=== PATIENT | male | born 1955 | race Caucasian/White ===

== ENCOUNTER 2018-08-18 17:35 | Inpatient (IN) | payer SELFPAY ==
[~2018-08-18] VITALS: Ht 172.7 cm; Wt 89.0 kg
[~2018-08-18 17:35] MED LIST: CYCL10 PO; NAPR550 PO; Percocet 5-3251 EACH PO
[2018-08-18 18:09] LABS: BASOPHILS ABSOLUTE AUTO 0.06 K/mm3 (0.00-0.23); BASOPHILS PERCENT AUTO 1 % (0-2); EOSINOPHILS ABSOLUTE AUTO 0.36 K/mm3 (0.00-0.68); EOSINOPHILS PERCENT AUTO 4 % (0-6); Hematocrit 45.5 % (37.0-53.0); Hemoglobin 15.3 g/dL (13.5-17.5); IMMATURE GRAN ABSOLUTE AUTO 0.02 K/mm3 (0.00-0.10); IMMATURE GRAN PERCENT AUTO 0 % (0-1); LYMPHOCYTES ABSOLUTE AUTO 5.14 K/mm3 (0.84-5.20); LYMPHOCYTES PERCENT AUTO 51 % (21-46); MONOCYTES ABSOLUTE AUTO 0.52 K/mm3 (0.16-1.47); MONOCYTES PERCENT AUTO 5 % (4-13); Mean Corpuscular HGB 31.2 pg (26.0-34.0); Mean Corpuscular HGB Conc 33.6 g/dL (31.5-36.5); Mean Corpuscular Volume 93 fL (80-100); Mean Platelet Volume 9.5 fL (9.1-12.4); NEUTROPHILS ABSOLUTE AUTO 4.04 K/mm3 (1.96-9.15); NEUTROPHILS PERCENT AUTO 40 % (41-73); Platelet Count 302 K/mm3 (150-400); RDW Coefficient Variation 13.7 % (11.7-14.2); RDW Standard Deviation 47.1 fL (35.1-46.3); White Blood Cell Count 10.14 K/mm3 (4.00-11.30)
[2018-08-18 18:38] LABS: Alanine Aminotransfer (ALT/SGP 22 U/L (12-78); Albumin, Blood 4.2 g/dL (3.4-5.0); Albumin/Globulin Ratio 0.9 (0.8-1.8); Alk Phos 85 U/L (50-136); Anion Gap 8 mmol/L (6-16); Aspartate Aminotrans (AST/SGOT 17 U/L (12-37); Bilirubin, Total 0.5 mg/dL (0.1-1.0); Blood Urea Nitrogen 13 mg/dL (8-24); Bun/Creatinine Ratio 14.9 (12.0-20.0); CO2, Blood 26 mmol/L (21-32); Calcium, Blood 8.9 mg/dL (8.5-10.1); Chloride, Blood 104 mmol/L (98-108); Creatinine, Blood 0.87 mg/dL (0.60-1.20); Globulin, Blood 4.9 g/dL (2.2-4.0); Glomerular Filtration Rate >60 (60-); Glucose, Blood 95 mg/dL (70-99); Potassium, Blood 3.4 mmol/L (3.5-5.5); Sodium, Blood 138 mmol/L (136-145); Total Protein, Blood 9.1 g/dL (6.4-8.2); Troponin I 0.075 ng/mL (0.000-0.040)
[2018-08-18 20:30] LABS: International Normalized Ratio 1.03; Prothrombin Time Results 10.9 Sec (9.7-11.5)
[2018-08-19 01:17] LABS: CHOL/HDL RATIO 4.1; Cholesterol 153 mg/dL (50-200); HDL Cholesterol 37 mg/dL (>39); LDL/HDL RATIO 2.4; Low Density Lipoprotein Chol 89 mg/dL (0-110); Triglycerides 137 mg/dL (30-160); Very Low Density Lipoprot Chol 27 mg/dL (6-32)
--- NOTE | 2018-08-19 05:36 | NUR ---
SHIFT SUMMARY PT ALERT AND ORIENTED X 3 THROUGHOUT SHIFT. HE WAS PLESANT AND COOPERATIVE WITH VITALS AND ASSESSMENTS. PT DENIED ANY UNMET NEEDS. HE COMMUNICATES WITH STAFF EFFECTIVELY. HE HAS HIS AT THE BEDSIDE AND SHE HAS BEEN ABLE TO ASSIST STAFF WITH QUESTIONS AND CONCERNS. PT HAS HAD COMPLAINTS OF CHEST PAIN AND PRESSURE WITH RADIATION DOWN HIS LEFT ARM T/O THE NIGHT. DOCTORS ARE AWARE AND CARDIOLOGY CONSULT HAS BEEN CALLED. PT STATES PAIN HAS BEEN JUST ABOVE TOLERABLE AND ORDERED MEDS WERE ADMINISTERED. NO ACUTE CHANGES HAVE BEEN OBSERVED TO MENTATION OR LOC. PT HAS HAD NO CHANGES TO HIS TELEMETRY PER RN ENDOCRINOLOGY. PT CONTINUES TO REST. HE HAS BEEN NPO SINCE MIDNIGHT IN THE EVENT OF THE NEED FOR PROCEDURE TODAY. HE HAS BEEN INDEPENDENT IN THE ROOM AND WAS OBSERVED TO HAVE A STEADY AND WELL BALANCED GAIT. HE HAS HIS BED IN THE LOWEST POSITION, CALL LIGHT IN REACH AND 2X SIDE RAILS IN PLACE. PT HAS JEANS ON AND DID NOT WANT TO TAKE THEM OFF AT THIS TIME. HIS VITALS HAVE BEEN STABLE T/O THE NIGHT AND HE WILL CONTINUE TO BE MONITORED UNTIL HANDOFF TO DAYSHIFT RN.
--- NOTE | 2018-08-19 08:38 | NUR ---
Shift Assessment: Assumed care of pt at approx 0700. VSS. In no apparent sign of distress. C/o 07/08 CP that has been constant for the past 2 days. See shift assessment for detailed assessment. Dr. Denton at bedside this AM to explain planned angio procedure today and obtain consent. Pt has been NPO since midnight. Pt is A&Ox4. Calls for assistance appropriately. Repositions self in bed. Verified heparin gtt with antoine RN at bedside this AM and it is running per orders. Pt is currently resting in bed with call light within reach. Denies any further questions, complaints or requests at this time. Will continue to monitor. ECHO completed this AM as well.
--- NOTE | 2018-08-19 09:17 | NUR ---
Update: Pt transferred now to HC via bed with HC staff for angio. In no apparent sign of distress at time of transfer.
--- NOTE | 2018-08-19 09:45 | NUR ---
ECHOCARDIOGRAM COMPLETE
--- NOTE | 2018-08-19 11:21 | NUR ---
Update: Pt returned to room from at approx 1030. VSS. In no apparent sign of distress. Pt is A&Ox4. Reports that he just feels tired. Denies any pain. R radial access site is wnl w/TR band in place and pt is compliant with R wrist restrictions. R radial site is free from s/sx of bleed or hematoma at this time. Pt is currently resting in bed with call light within reach. Denies any further questions, complaints or requests at this time. Will continue to monitor.
--- NOTE | 2018-08-19 12:33 | NUR ---
Spiritual care visit conducted. Patient was lying in bed when I entered the patient's room. I introduced myself and patient welcomed me. Patient explained about his very recent surgery and his hopes for a speedy recovery. I listened empathically, encouraged self care, explored patient's belief system and provided prayer. Patient responded well and expressed gratitude for the prayer.
[2018-08-19] MEDS ORDERED: ASPI81CH PO (13:10)
[2018-08-19] MEDS ORDERED: ATOR80 PO (13:11)
[2018-08-19] MEDS ORDERED: METO25ER PO (13:12)
--- NOTE | 2018-08-19 13:22 | NUR ---
2cc's of air removed from TR band. No bleeding, no hematoma, no pain.
--- NOTE | 2018-08-19 15:23 | NUR ---
Shift Summary Pt discharged at approx 1437. VSS at time of discharge. In no apparent sign of distress. Pt discharged home with family. R TR band deflated and removed per orders/protocol w/clear dressing placed and R wrist immobilizer. Pt compliant w/R wrist restrictions. Pt educated on R radial post-angio care. Pt discharged with all belongings in hand. Pt denied any further questions, complaints or requests at time of discharge. R radial access site was free from s/sx of bleed or hematoma.
== END 2018-08-19 14:37 | disposition home or self-care (01) | DRG 282 ==
LOC: ER 17:35 → PCU 20:36
PROVIDERS: Emergency Medicine; Nurse Practitioner Acute Care; Physician Assistant; ADMIT Internal Medicine
PROC: 4A023N7 Measurement of Cardiac Sampling and Pressure, Left Heart, Percutaneous Approach (ICD-10-PCS; principal; 2018-08-19)
PROC: B210YZZ Fluoroscopy of Single Coronary Artery using Other Contrast (ICD-10-PCS; 2018-08-19)
DX: I21.4 Non-ST elevation (NSTEMI) myocardial infarction (principal); I10 Essential (primary) hypertension; K59.09 Other constipation; M19.90 Unspecified osteoarthritis, unspecified site; F41.9 Anxiety disorder, unspecified; Z87.891 Personal history of nicotine dependence; Z91.14 Patient's other noncompliance with medication regimen; E87.6 Hypokalemia; I25.10 Atherosclerotic heart disease of native coronary artery without angina pectoris
CPT/HCPCS: 36415; 71046; 71260; 80053; 80061; 84484; 85025; 85347; 85610; 85730; 93005; 93010; 93306; 93454; 96374-59; 99152; 99153; 99285-25; C1769; C1894; J1644; J2250; J3010; J7030; Q9967

== ENCOUNTER → 2023-04-24 | Outpatient (CLI) | payer MEDICARE ==
[~2023-04-24] MED LIST changes: +ASPI81CH PO; +ATOR80 PO; +METO25ER PO
[2023-04-24 11:34] LABS: BASOPHILS ABSOLUTE AUTO 0.05 K/mm3 (0.00-0.23); BASOPHILS PERCENT AUTO 1 % (0-2); EOSINOPHILS ABSOLUTE AUTO 0.45 K/mm3 (0.00-0.68); EOSINOPHILS PERCENT AUTO 5 % (0-6); Hematocrit 44.4 % (37.0-53.0); Hemoglobin 14.8 g/dL (13.5-17.5); IMMATURE GRAN ABSOLUTE AUTO 0.02 K/mm3 (0.00-0.10); IMMATURE GRAN PERCENT AUTO 0 % (0-1); LYMPHOCYTES ABSOLUTE AUTO 3.48 K/mm3 (0.84-5.20); LYMPHOCYTES PERCENT AUTO 37 % (21-46); MONOCYTES ABSOLUTE AUTO 0.58 K/mm3 (0.16-1.47); MONOCYTES PERCENT AUTO 6 % (4-13); Mean Corpuscular HGB 30.6 pg (26.0-34.0); Mean Corpuscular HGB Conc 33.3 g/dL (31.5-36.5); Mean Corpuscular Volume 92 fL (80-100); NEUTROPHILS ABSOLUTE AUTO 4.96 K/mm3 (1.96-9.15); NEUTROPHILS PERCENT AUTO 52 % (41-73); Platelet Count 311 K/mm3 (150-400); RDW Coefficient Variation 14.7 % (11.7-14.2); Red Blood Cell Count 4.84 M/mm3 (4.30-5.90); White Blood Cell Count 9.54 K/mm3 (4.00-11.30)
[2023-04-24 12:04] LABS: Alanine Aminotransfer (ALT/SGP 40 U/L (12-78); Albumin, Blood 4.1 g/dL (3.4-5.0); Albumin/Globulin Ratio 0.8 (0.8-1.8); Alk Phos 87 U/L (50-136); Anion Gap 5 mmol/L (6-16); Aspartate Aminotrans (AST/SGOT 27 U/L (12-37); Bilirubin, Total 0.4 mg/dL (0.1-1.0); Blood Urea Nitrogen 16 mg/dL (8-24); Bun/Creatinine Ratio 17.1 (12.0-20.0); CO2, Blood 26 mmol/L (21-32); Calcium, Blood 9.2 mg/dL (8.5-10.1); Chloride, Blood 106 mmol/L (98-108); Cholesterol 187 mg/dL (50-200); Creatinine, Blood 0.94 mg/dL (0.60-1.20); Globulin, Blood 4.9 g/dL (2.2-4.0); Glomerular Filtration Rate 90 (60-); Glucose, Blood 98 mg/dL (70-99); HDL Cholesterol 47 mg/dL (>39); LDL/HDL RATIO 2.6; Low Density Lipoprotein Chol 121 mg/dL (0-110); Potassium, Blood 4.1 mmol/L (3.5-5.5); Sodium, Blood 137 mmol/L (136-145); Triglycerides 97 mg/dL (30-160); Very Low Density Lipoprot Chol 19 mg/dL (6-32)
== END | disposition home or self-care (01) ==
LOC: LAB SHORT 10:13 → LAB 10:13
PROVIDERS: Nurse Practitioner Family
DX: Z13.6 Encounter for screening for cardiovascular disorders (principal); I10 Essential (primary) hypertension
CPT/HCPCS: 80053; 80061; 85025

== ENCOUNTER 2024-11-04 11:50 | Emergency (ER) | payer OTHER ==
[~2024-11-04] VITALS: Ht 172.7 cm; Wt 88.5 kg
[2024-11-04 12:05] VITALS: BP 164/118
== END 2024-11-04 14:32 | disposition home or self-care (01) ==
LOC: ER 11:50
DX: S06.0X9A Concussion with loss of consciousness of unspecified duration, initial encounter (principal); R07.89 Other chest pain; Z79.82 Long term (current) use of aspirin; Z88.5 Allergy status to narcotic agent; Z79.899 Other long term (current) drug therapy; W31.0XXA Contact with mining and earth-drilling machinery, initial encounter
CPT/HCPCS: 70450; 71046; 99284-25

== ENCOUNTER 2025-03-21 09:38 | Day surgery (SDC) | payer OTHER ==
[~2025-03-21] VITALS: Ht 172.7 cm; Wt 89.8 kg
[~2025-03-21 09:38] MED LIST changes: +MULVITA PO
[2025-03-21 10:08] VITALS: BP 165/105
[2025-03-21 10:11] VITALS: BP 156/98
--- NOTE | 2025-03-21 10:20 | NUR ---
Ambulatory in Day Surgery WITH STEADY GAIT. History, Chart, Medications and Allergies reviewed before start of procedure. Pre-Op teaching done. Pt verbalizes understanding. Patient States Post-Procedure ride home has been arranged WITH SPOUSE. DENTURES AND GLASSES REMAIN IN PLACE IN PRE OP. SPOUSE AT BEDSIDE. CALL LIGHT IN REACH.
--- NOTE | 2025-03-21 11:17 | NUR ---
03/21/25 1117 Sarahy Davis MAC WITH PATRICIA HOOVER CRNA. SEE ANESTHESIA RECORDS.
[2025-03-21 11:32] VITALS: BP 137/92
--- NOTE | 2025-03-21 11:36 | NUR ---
Report received from Sarahy SHAY. VSS. Pt on RA. Pt A&OX4. Pt able to reposition self in bed. PT requesting PO food and fluids and tolerating them well. Pt denies pain, nausea or other complaints. Pt spouse at bedside.
[2025-03-21 11:45] VITALS: BP 128/92
== END 2025-03-21 12:00 | disposition home or self-care (01) ==
LOC: ORSCMMR 09:38 → ORD 11:00 → ORSCMMR 11:00
PROVIDERS: Surgery
PROC: 0DB68ZX Excision of Stomach, Via Natural or Artificial Opening Endoscopic, Diagnostic (ICD-10-PCS; principal; 2025-03-21 11:00)
DX: K21.9 Gastro-esophageal reflux disease without esophagitis (principal); K31.7 Polyp of stomach and duodenum; R11.10 Vomiting, unspecified; J44.9 Chronic obstructive pulmonary disease, unspecified; I10 Essential (primary) hypertension; M79.7 Fibromyalgia; I25.10 Atherosclerotic heart disease of native coronary artery without angina pectoris; Z87.891 Personal history of nicotine dependence
CPT/HCPCS: 88305; 88341; 88342; J2704; J7120

== ENCOUNTER 2025-04-25 08:18 | Day surgery (SDC) | payer OTHER ==
[2025-04-25] VITALS (15 sets, daily range): BP systolic 133–166; BP diastolic 66–101
[~2025-04-25] VITALS: Ht 172.7 cm; Wt 88.9 kg
[2025-04-25] MEDS ORDERED: Bupivacaine 0.5% W/EPI 1:200000 SDV 30 ML Vial ONE (09:04)
[2025-04-25] MEDS ORDERED: FentaNYL Citrate 50 MCG/ML 2 ML Injection ONE ×3 (09:28→12:14)
[2025-04-25] MEDS ORDERED: Midazolam HCl 1MG / ML 2ML Vial ONE (09:28)
[2025-04-25] MEDS ORDERED: Dexamethasone Sod Phos 10 MG/ML 1ML VIAL ONE (09:37)
[2025-04-25] MEDS ORDERED: Ondansetron HCl 2 MG / ML 2ML Vial ONE (09:37)
[2025-04-25] MEDS ORDERED: HYDROmorphone HCl/Pf 1MG SYR IV PRN ×2 (10:05→10:10)
[2025-04-25] MEDS ORDERED: FentaNYL Citrate 50 MCG/ML 2 ML Injection IV PRN ×2 (10:05→10:10)
[2025-04-25] MEDS ORDERED: Metoclopramide HCl 5MG / ML 2ML Vial IV PRN (10:10)
[2025-04-25] MEDS ORDERED: Ondansetron HCl 2 MG / ML 2ML Vial IV PRN ×2 (10:10→12:15)
[2025-04-25] MEDS ORDERED: Albuterol 2.5 MG/3 ML VIAL INH PRN (10:10)
[2025-04-25] MEDS ORDERED: Phenylephrine HCl 100 MCG/ML-NS 10MLSYR (1MG/10ML) ONE (10:18)
[2025-04-25] MEDS ORDERED: Rocuronium Bromide 10 MG/ML 5ML Injection IV ONE (11:01)
[2025-04-25] MEDS ORDERED: Sugammadex Sodium 200 MG/2ML SDV (100 MG/ML) ONE (11:22)
[2025-04-25] MEDS ORDERED: Ketorolac Tromethamine 30mg Vial ONE (11:28)
[2025-04-25] MEDS ORDERED: FLU VACC TS2025(65UP)/MF59C/PF 45 MCG/0.5 ML SYRINGE IM SCH (12:15)
[2025-04-25] MEDS ORDERED: OxyCODONE 5 mg/Acetamin 325 mg TABLET PO PRN (12:30)
[2025-04-25] MEDS ORDERED: Ketorolac Tromethamine 15mg Vial IV PRN (13:20)
--- NOTE | 2025-04-25 13:46 | NUR ---
POST-OP PATIENT IS AOX4, LAP SITES X4 WITH WOUND GLUE, YAHIR, C/D/I. REPORTS MILD NAUSEA, AND GAS PAIN. SIPPING ON WATER. VSS, ON 2L NC SPO2 95%. RESTING AT THIS TIME. IVF RUNNING.
--- NOTE | 2025-04-25 17:16 | NUR ---
DISCHARGE PATIENT IS UP VOIDING, TOLERATING CL INTAKE. VSS. ABLE TO AMBULATE INTO BATHROOM UP IN CHAIR. PAIN IS MANAGED WITH PO MEDS. IV TAKEN OUT INTACT. ALL DC INSTRUCTIONS READ AND SIGNED. PATIENT IS WHEELED OUT TO AWAITING CAR.
[2025-04-26] MEDS ORDERED: Enoxaparin 40 MG/0.4 ML SYR SC SCH (09:00)
== END 2025-04-25 16:46 | disposition home or self-care (01) ==
LOC: ORSCMMR 08:18 → ORD 09:30 → SURS 12:45 → ORSCMMR 16:46
PROVIDERS: Surgery
PROC: 0BQT4ZZ Repair Diaphragm, Percutaneous Endoscopic Approach (ICD-10-PCS; principal; 2025-04-25 09:30)
PROC: 0DV44ZZ Restriction of Esophagogastric Junction, Percutaneous Endoscopic Approach (ICD-10-PCS; principal; 2025-04-25 09:30)
PROC: 8E0W4CZ Robotic Assisted Procedure of Trunk Region, Percutaneous Endoscopic Approach (ICD-10-PCS; principal; 2025-04-25 09:30)
DX: K44.9 Diaphragmatic hernia without obstruction or gangrene (principal); K21.9 Gastro-esophageal reflux disease without esophagitis; I25.10 Atherosclerotic heart disease of native coronary artery without angina pectoris; J44.9 Chronic obstructive pulmonary disease, unspecified; M79.7 Fibromyalgia; I10 Essential (primary) hypertension; Z87.891 Personal history of nicotine dependence
CPT/HCPCS: A9270; J1100; J1885; J2250; J2371; J2405; J2704; J3010; J7120

== ENCOUNTER 2025-05-15 03:15 | Inpatient (IN) | payer OTHER ==
[~2025-05-15] VITALS: Ht 172.7 cm; Wt 81.7 kg
[2025-05-16] VITALS (20 sets, daily range): BP systolic 104–145; BP diastolic 61–97
--- NOTE | 2025-05-16 00:30 | NUR ---
SHIFT SUMMARY: PATIENT WAS A DIRECT ADMIT AND CAME UP VIA WHEELCHAIR FROM ER ADMISSION AND ARRIVED AROUND 0030 TODAY. PATIENT WAS ABLE TO STAND AND WALK FROM THE WHEELCHAIR TO THE BED IN THE ROOM A SBA DUE TO A SLIGHT UNSTEADY GAIT DUE TO ABD PAIN. PATIENT IS A&OX4. IS ALSO AT BEDSIDE. VITALS ARE STABLE AND PATIENT IS ON ROOM AIR WITH >90% SPO2. PATIENT HAS BEEN NPO SINCE ARRIVAL TO THE UNIT. PATIENT WAS NAUSEOUS UPON ARRIVAL TO THE UNIT BUT WAS MANAGED WITH PRN IV DOSE OF ZOFRAN PER EMAR. ABD PAIN HAS BEEN MANAGED WITH IV DILAUDID PER EMAR. PATIENT IS VOIDING BY GOING TO THE BATHROOM A SBA. PATIENT IS CURRENTLY LAYING IN BED WITH CALL LIGHT IN REACH AND IS STAYING AT BEDSIDE. PATIENT IS ABLE TO MAKE HIS NEEDS KNOWN AND CALLS APPROPRIATELY.
[2025-05-16] MEDS ORDERED: Ondansetron HCl 2 MG / ML 2ML Vial IV PRN ×4 (00:35→16:00)
[2025-05-16] MEDS ORDERED: FentaNYL Citrate 50 MCG/ML 2 ML Injection IV PRN ×4 (00:35→16:00)
[2025-05-16] MEDS ORDERED: HYDROmorphone HCl/Pf 1MG SYR IV PRN ×5 (00:40→16:00)
[2025-05-16 00:53] LABS: BASOPHILS ABSOLUTE AUTO 0.04 K/mm3 (0.00-0.23); BASOPHILS PERCENT AUTO 0 % (0-2); EOSINOPHILS ABSOLUTE AUTO 0.02 K/mm3 (0.00-0.68); EOSINOPHILS PERCENT AUTO 0 % (0-6); Hematocrit 32.3 % (37.0-53.0); Hemoglobin 11.1 g/dL (13.5-17.5); IMMATURE GRAN ABSOLUTE AUTO 0.08 K/mm3 (0.00-0.10); IMMATURE GRAN PERCENT AUTO 0 % (0-1); LYMPHOCYTES ABSOLUTE AUTO 2.71 K/mm3 (0.84-5.20); LYMPHOCYTES PERCENT AUTO 13 % (21-46); MONOCYTES ABSOLUTE AUTO 1.32 K/mm3 (0.16-1.47); MONOCYTES PERCENT AUTO 7 % (4-13); Mean Corpuscular HGB Conc 34.4 g/dL (31.5-36.5); Mean Corpuscular Volume 92 fL (80-100); NEUTROPHILS ABSOLUTE AUTO 16.21 K/mm3 (1.96-9.15); NEUTROPHILS PERCENT AUTO 80 % (41-73); NRBC ABSOLUTE 0.00 K/mm3 (0.00-0.02); NRBC Auto 0.0 /100 WBC (0.0-0.2); Platelet Count 491 K/mm3 (150-400); RDW Coefficient Variation 13.9 % (11.7-14.2); RDW Standard Deviation 47.2 fL (35.1-46.3)
[2025-05-16 01:12] LABS: Alanine Aminotransfer (ALT/SGP 26.0 U/L (12-78); Albumin, Blood 2.4 g/dL (3.4-5.0); Albumin/Globulin Ratio 0.4 (0.8-1.8); Anion Gap 10.0 mmol/L (3-11); Aspartate Aminotrans (AST/SGOT 13.0 U/L (12-37); Bilirubin, Total 0.6 mg/dL (0.1-1.0); Blood Urea Nitrogen 11.0 mg/dL (8-24); CO2, Blood 25.0 mmol/L (21-32); Calcium, Blood 8.8 mg/dL (8.5-10.1); Chloride, Blood 102.0 mmol/L (98-108); Creatinine, Blood 0.83 mg/dL (0.60-1.20); Globulin, Blood 5.5 g/dL (2.2-4.0); Glucose, Blood 122.0 mg/dL (70-99); Potassium, Blood 4.1 mmol/L (3.5-5.5); Sodium, Blood 133.0 mmol/L (136-145); Total Protein, Blood 7.9 g/dL (6.4-8.2)
[2025-05-16] MEDS ORDERED: Magnesium Hydroxide Conc 10 ML UDC PO PRN (02:05)
[2025-05-16] MEDS ORDERED: FLU VACC TS2025(65UP)/MF59C/PF 45 MCG/0.5 ML SYRINGE IM SCH (02:05)
[2025-05-16] MEDS ORDERED: NS 1,000 ML IV SCH (03:00)
[2025-05-16] MEDS ORDERED: Piperacillin/Tazobactam Sod 3.375 GM in NS 100 ML IV SCH (03:07)
[2025-05-16] MEDS ORDERED: Ketorolac Tromethamine 15mg Vial IV PRN (03:10)
[2025-05-16] MEDS ORDERED: Vancomycin (Pharmacy Consult) IV SCH (06:40)
[2025-05-16 08:37] LABS: BASOPHILS ABSOLUTE AUTO 0.05 K/mm3 (0.00-0.23); BASOPHILS PERCENT AUTO 0 % (0-2); EOSINOPHILS ABSOLUTE AUTO 0.07 K/mm3 (0.00-0.68); EOSINOPHILS PERCENT AUTO 0 % (0-6); Hematocrit 31.7 % (37.0-53.0); Hemoglobin 10.7 g/dL (13.5-17.5); IMMATURE GRAN ABSOLUTE AUTO 0.06 K/mm3 (0.00-0.10); IMMATURE GRAN PERCENT AUTO 0 % (0-1); LYMPHOCYTES ABSOLUTE AUTO 2.88 K/mm3 (0.84-5.20); LYMPHOCYTES PERCENT AUTO 18 % (21-46); MONOCYTES ABSOLUTE AUTO 1.26 K/mm3 (0.16-1.47); MONOCYTES PERCENT AUTO 8 % (4-13); Mean Corpuscular HGB Conc 33.8 g/dL (31.5-36.5); Mean Corpuscular Volume 92 fL (80-100); NEUTROPHILS ABSOLUTE AUTO 12.08 K/mm3 (1.96-9.15); NEUTROPHILS PERCENT AUTO 74 % (41-73); NRBC ABSOLUTE 0.00 K/mm3 (0.00-0.02); NRBC Auto 0.0 /100 WBC (0.0-0.2); Platelet Count 466 K/mm3 (150-400); RDW Coefficient Variation 14.0 % (11.7-14.2); RDW Standard Deviation 48.0 fL (35.1-46.3)
[2025-05-16] MEDS ORDERED: Lactobacil 2-S.Thermo-Bifido 1 1 Cap PO SCH (09:00)
[2025-05-16 09:49] LABS: Alanine Aminotransfer (ALT/SGP 25.0 U/L (12-78); Albumin, Blood 2.3 g/dL (3.4-5.0); Albumin/Globulin Ratio 0.4 (0.8-1.8); Anion Gap 7.0 mmol/L (3-11); Aspartate Aminotrans (AST/SGOT 17.0 U/L (12-37); Bilirubin, Total 0.6 mg/dL (0.1-1.0); Blood Urea Nitrogen 11.0 mg/dL (8-24); CO2, Blood 28.0 mmol/L (21-32); Calcium, Blood 8.8 mg/dL (8.5-10.1); Chloride, Blood 102.0 mmol/L (98-108); Creatinine, Blood 0.86 mg/dL (0.60-1.20); Globulin, Blood 5.2 g/dL (2.2-4.0); Glucose, Blood 112.0 mg/dL (70-99); Potassium, Blood 4.0 mmol/L (3.5-5.5); Sodium, Blood 133.0 mmol/L (136-145); Total Protein, Blood 7.5 g/dL (6.4-8.2)
[2025-05-16] MEDS ORDERED: METO5A PO (10:06)
[2025-05-16] MEDS ORDERED: Ativan1 MG PO (10:06)
[2025-05-16] MEDS ORDERED: TPN Consult Notification XX ONE (12:25)
--- NOTE | 2025-05-16 15:55 | NUR ---
PT TO DAY SURGERY.
[2025-05-16] MEDS ORDERED: Bupivacaine 0.5% W/EPI 1:200000 SDV 30 ML Vial ONE ×2 (15:58→16:27)
[2025-05-16] MEDS ORDERED: Albuterol 2.5 MG/3 ML VIAL INH PRN (16:00)
--- NOTE | 2025-05-16 16:35 | NUR ---
PT TO UNIT VIA GURN. ABLE TO MOVE TO GURN INDEPENDENTLY. REMOVED UNDERWEAR AND LEFT IN PT'S ROOM. PT'S GLASSES GIVEN TO SPOUSE IN DAY SURGERY. Pre-Op teaching done. Pt verbalizes understanding. History, Chart, Medications and Allergies reviewed before start of procedure.
[2025-05-16] MEDS ORDERED: Rocuronium Bromide 10 MG/ML 5ML Injection IV ONE ×2 (16:41→17:23)
[2025-05-16] MEDS ORDERED: Ondansetron HCl 2 MG / ML 2ML Vial ONE ×2 (16:41→18:40)
[2025-05-16] MEDS ORDERED: Dexamethasone Sod Phos 10 MG/ML 1ML VIAL ONE (16:41)
[2025-05-16] MEDS ORDERED: FentaNYL Citrate 50 MCG/ML 2 ML Injection ONE ×3 (16:42→18:56)
[2025-05-16] MEDS ORDERED: Sugammadex Sodium 200 MG/2ML SDV (100 MG/ML) ONE (16:54)
[2025-05-16] MEDS ORDERED: Piperacillin/Tazobactam Sod 3.375 GM ONE (16:55)
[2025-05-16] MEDS ORDERED: Parenteral Electolytes 40 ML,POTASSIUM PHOS,M-BASIC-D-BASIC 30 MMOL,Multivitamins 10 ML... IV SCH (17:00)
[2025-05-16] MEDS ORDERED: HYDROmorphone HCl/Pf 1MG SYR ONE (18:42)
[2025-05-17 05:42] LABS: BASOPHILS ABSOLUTE AUTO 0.02 K/mm3 (0.00-0.23); BASOPHILS PERCENT AUTO 0 % (0-2); EOSINOPHILS ABSOLUTE AUTO 0.01 K/mm3 (0.00-0.68); EOSINOPHILS PERCENT AUTO 0 % (0-6); Hematocrit 31.1 % (37.0-53.0); Hemoglobin 10.4 g/dL (13.5-17.5); IMMATURE GRAN ABSOLUTE AUTO 0.06 K/mm3 (0.00-0.10); IMMATURE GRAN PERCENT AUTO 1 % (0-1); LYMPHOCYTES ABSOLUTE AUTO 1.11 K/mm3 (0.84-5.20); LYMPHOCYTES PERCENT AUTO 9 % (21-46); MONOCYTES ABSOLUTE AUTO 0.41 K/mm3 (0.16-1.47); MONOCYTES PERCENT AUTO 3 % (4-13); Mean Corpuscular HGB Conc 33.4 g/dL (31.5-36.5); Mean Corpuscular Volume 93 fL (80-100); NEUTROPHILS ABSOLUTE AUTO 11.35 K/mm3 (1.96-9.15); NEUTROPHILS PERCENT AUTO 87 % (41-73); NRBC ABSOLUTE 0.00 K/mm3 (0.00-0.02); NRBC Auto 0.0 /100 WBC (0.0-0.2); Platelet Count 447 K/mm3 (150-400); RDW Coefficient Variation 13.9 % (11.7-14.2); RDW Standard Deviation 47.3 fL (35.1-46.3)
[2025-05-17 06:24] LABS: Anion Gap 9 mmol/L (3-11); Blood Urea Nitrogen 13 mg/dL (8-24); CO2, Blood 27 mmol/L (21-32); Calcium, Blood 8.7 mg/dL (8.5-10.1); Chloride, Blood 103 mmol/L (98-108); Creatinine, Blood 0.71 mg/dL (0.60-1.20); Glucose, Blood 170 mg/dL (70-99); Magnesium, Blood 2.1 mg/dL (1.6-2.4); Phosphorus, Blood 3.9 mg/dL (2.5-4.9); Potassium, Blood 4.5 mmol/L (3.5-5.5); Prealbumin, Blood 5.5 mg/dL (20.0-40.0); Sodium, Blood 134 mmol/L (136-145); Triglycerides 75 mg/dL (30-160)
[2025-05-17 07:28] VITALS: BP 134/89
[2025-05-17] MEDS ORDERED: TPN Consult Notification XX ONE (10:05)
[2025-05-17 13:51] LABS: Ferritin, Serum 629.0 ng/mL (26-388); Total Iron Binding Capacity 147.0 ug/dL (250-450)
[2025-05-17 15:33] VITALS: BP 163/90
[2025-05-17] MEDS ORDERED: Parenteral Electolytes 40 ML,Potassium Phosphate Dibasic 30 MM,Multivitamins 10 ML,ZINC... IV SCH (17:00)
--- NOTE | 2025-05-17 17:12 | NUR ---
SHIFT SUMMARY PT IS A/0X4. PT AMBULATED HALLS X3 TODAY, REPORTS DECREASED PAIN AND BETTER PAIN MANAGEMENT. PT NPO, DENIES N/V. MEDICATED PER EMAR, ENCOURAGED REPOSITIONING, HEAT, AND DISTRATION UTILIZED. NO ACUTE CHANGES, VSS. CALL LIGHT IN REACH
[2025-05-17 19:54] VITALS: BP 147/103
[2025-05-17 20:15] VITALS: BP 152/103
[2025-05-17 22:59] VITALS: BP 144/81
[2025-05-18 06:06] VITALS: BP 130/83
[2025-05-18 07:29] VITALS: BP 123/80
--- NOTE | 2025-05-18 07:55 | NUR ---
SHIFT SUMMARY NOC. PT POD 2 FOR I&D OF ABCESS AFTER A HERNIA REPAIR AND FUNDOPLICATION. PT A/O X4. PT MEDICATED FOR PAIN WITH REPORTED RELIEF OF SX. PPN RUNNING PER EMAR. CHEM BG'S STABLE. PT NPO BUT ALLOWED SIPS AND ICE CHIPS. PT VOIDING URINE. GER DRAIN PRODUCING DRAINAGE. MAKES NEEDS KNOWN.
[2025-05-18 08:52] LABS: Vancomycin, Trough 15.9 ug/mL (5.0-10.0)
[2025-05-18 09:24] LABS: Anion Gap 8.0 mmol/L (3-11); Blood Urea Nitrogen 15.0 mg/dL (8-24); CO2, Blood 29.0 mmol/L (21-32); Calcium, Blood 8.4 mg/dL (8.5-10.1); Chloride, Blood 103.0 mmol/L (98-108); Creatinine, Blood 0.89 mg/dL (0.60-1.20); Glucose, Blood 104.0 mg/dL (70-99); Magnesium, Blood 2.3 mg/dL (1.6-2.4); Phosphorus, Blood 3.6 mg/dL (2.5-4.9); Potassium, Blood 4.0 mmol/L (3.5-5.5); Sodium, Blood 136.0 mmol/L (136-145)
--- NOTE | 2025-05-18 09:52 | NUR ---
Pt. is awake in bed and welcomes my visit. Pt. is pleasant. Pt. verbalizes that he met this java support engineer when his father was a Pt. facilitated a lengthy update of his health journey. Began to address matters of cruz and belief and a measure of rapport is established. Pts. nurse came to administer meds, and the Pt. requested this java support engineer to return later in the day.
[2025-05-18] MEDS ORDERED: Enoxaparin 40 MG/0.4 ML SYR SC SCH (12:00)
[2025-05-18] MEDS ORDERED: CefTRIAXone Sodium 2,000 MG in NS 100 ML IV SCH (12:00)
[2025-05-18 15:14] VITALS: BP 136/77
[2025-05-18 19:32] VITALS: BP 122/76
[2025-05-19 05:37] LABS: Magnesium, Blood 2.4 mg/dL (1.6-2.4)
[2025-05-19 05:38] LABS: Anion Gap 9.0 mmol/L (3-11); Blood Urea Nitrogen 17.0 mg/dL (8-24); CO2, Blood 28.0 mmol/L (21-32); Calcium, Blood 8.4 mg/dL (8.5-10.1); Chloride, Blood 102.0 mmol/L (98-108); Creatinine, Blood 0.81 mg/dL (0.60-1.20); Glucose, Blood 104.0 mg/dL (70-99); Phosphorus, Blood 4.1 mg/dL (2.5-4.9); Potassium, Blood 4.0 mmol/L (3.5-5.5); Sodium, Blood 135.0 mmol/L (136-145)
[2025-05-19 06:09] VITALS: BP 136/86
--- NOTE | 2025-05-19 07:47 | NUR ---
PT POD 3 FOR I&D OF ABCESS AFTER HERNIA REPAIR WITH FUNDOPLICATION. PT A/O X4 INDEPENDENT TO SBA IN ROOM FOR CORD MANAGEMENT. PPN RUNNING PER EMAR, CHEM BGS STABLE. LAP SITES C/D/I, GER SITE LEAKING SMALL AMOUNT OF SEROSANG DRAINAGE. DRESSING CHANGED AND REINFORCED. PT HAVING MULTIPLE LOOSE STOOL EPISODES THIS SHIFT. PT VOIDING URINE AND TOLERATING CLEARS. MAKES NEEDS KNOWN, CALL LIGHT IN REACH.
[2025-05-19 08:41] VITALS: BP 136/80
[2025-05-19 14:56] VITALS: BP 140/87
--- NOTE | 2025-05-19 18:03 | NUR ---
SHIFT SUMMARY PATIENTIS AOX4, POD 3 EX LAP AND DRAIN PLACEMENT. GER DRAINING MINIMAL S/S/ OUTPUT. PATIENT ON TPN, HAVING LOOSE STOOLS. ABLE TO TOLERATE FULL LIQ DIET. UP IND IN ROOM T/O SHIFT. VOIDING. DENIES NAUSEA. MEDICATED WITH PO PAIN MEDICATIONS. LAP SITES ARE C/D/I. POSSIBLE DC OF TPN AND SWITCH TO PO ABX. IN AM. POSSIBLE DC THIS WEEKEND. USES CALL LIGHT APROPRIATELY.
[2025-05-19 20:47] VITALS: BP 126/81
--- NOTE | 2025-05-20 05:12 | NUR ---
SHIFT SUMMARY NO ACUTE EVENTS OVERNIGHT. PT AMBULATES AND TOLERATING PO INTAKE.
[2025-05-20 05:38] LABS: BASOPHILS ABSOLUTE AUTO 0.06 K/mm3 (0.00-0.23); BASOPHILS PERCENT AUTO 1 % (0-2); EOSINOPHILS ABSOLUTE AUTO 0.28 K/mm3 (0.00-0.68); EOSINOPHILS PERCENT AUTO 3 % (0-6); Hematocrit 33.5 % (37.0-53.0); Hemoglobin 11.2 g/dL (13.5-17.5); IMMATURE GRAN ABSOLUTE AUTO 0.04 K/mm3 (0.00-0.10); IMMATURE GRAN PERCENT AUTO 0 % (0-1); LYMPHOCYTES ABSOLUTE AUTO 3.49 K/mm3 (0.84-5.20); LYMPHOCYTES PERCENT AUTO 34 % (21-46); MONOCYTES ABSOLUTE AUTO 0.74 K/mm3 (0.16-1.47); MONOCYTES PERCENT AUTO 7 % (4-13); Mean Corpuscular HGB Conc 33.4 g/dL (31.5-36.5); Mean Corpuscular Volume 92 fL (80-100); NEUTROPHILS ABSOLUTE AUTO 5.55 K/mm3 (1.96-9.15); NEUTROPHILS PERCENT AUTO 55 % (41-73); NRBC ABSOLUTE 0.00 K/mm3 (0.00-0.02); NRBC Auto 0.0 /100 WBC (0.0-0.2); Platelet Count 495 K/mm3 (150-400); RDW Coefficient Variation 13.4 % (11.7-14.2); RDW Standard Deviation 45.5 fL (35.1-46.3)
[2025-05-20 05:58] LABS: Anion Gap 8.0 mmol/L (3-11); Blood Urea Nitrogen 18.0 mg/dL (8-24); CO2, Blood 27.0 mmol/L (21-32); Calcium, Blood 8.8 mg/dL (8.5-10.1); Chloride, Blood 105.0 mmol/L (98-108); Creatinine, Blood 0.81 mg/dL (0.60-1.20); Glucose, Blood 96.0 mg/dL (70-99); Potassium, Blood 4.2 mmol/L (3.5-5.5); Sodium, Blood 136.0 mmol/L (136-145)
[2025-05-20 06:06] VITALS: BP 141/87
[2025-05-20 07:12] VITALS: BP 145/87
--- NOTE | 2025-05-20 08:53 | NUR ---
DR BARR IN TO SEE PT.
--- NOTE | 2025-05-20 10:52 | NUR ---
GER DRESSING CHANGED AFTER SHOWER. PT ASSISTED TO DRESS IN OWN CLOTHES. DRAIN CARE EDUCATION GIVEN TO PT AND SPOUSE.
[2025-05-20 14:09] VITALS: BP 121/68
--- NOTE | 2025-05-20 17:20 | NUR ---
SUMMARY NO ACUTE CHANGES T/O SHIFT. PT TOLERATING DIET. AMBULATED MULTIPLE TIMES IN SALES W/SPOUSE. PLEASANT AND COOPERATIVE WITH CARE. CALL LIGHT IN REACH.
[2025-05-20 19:29] VITALS: BP 136/84
--- NOTE | 2025-05-21 04:43 | NUR ---
SHIFT SUMMARY NO ACUTE EVENTS OVERNIGHT. PT TOLERATING PO INTAKE WITH NO C/O NAUSEA. PT ANTICIPATING DISCHARGE TODAY. PT WILL BE HERE AFTER 12PM TODAY.
[2025-05-21 05:13] VITALS: BP 132/92
[2025-05-21 06:08] LABS: BASOPHILS ABSOLUTE AUTO 0.08 K/mm3 (0.00-0.23); BASOPHILS PERCENT AUTO 1 % (0-2); EOSINOPHILS ABSOLUTE AUTO 0.37 K/mm3 (0.00-0.68); EOSINOPHILS PERCENT AUTO 4 % (0-6); Hematocrit 35.1 % (37.0-53.0); Hemoglobin 11.6 g/dL (13.5-17.5); IMMATURE GRAN ABSOLUTE AUTO 0.07 K/mm3 (0.00-0.10); IMMATURE GRAN PERCENT AUTO 1 % (0-1); LYMPHOCYTES ABSOLUTE AUTO 3.93 K/mm3 (0.84-5.20); LYMPHOCYTES PERCENT AUTO 37 % (21-46); MONOCYTES ABSOLUTE AUTO 0.72 K/mm3 (0.16-1.47); MONOCYTES PERCENT AUTO 7 % (4-13); Mean Corpuscular HGB Conc 33.0 g/dL (31.5-36.5); Mean Corpuscular Volume 93 fL (80-100); NEUTROPHILS ABSOLUTE AUTO 5.37 K/mm3 (1.96-9.15); NEUTROPHILS PERCENT AUTO 51 % (41-73); NRBC ABSOLUTE 0.00 K/mm3 (0.00-0.02); NRBC Auto 0.0 /100 WBC (0.0-0.2); Platelet Count 526 K/mm3 (150-400); RDW Coefficient Variation 13.5 % (11.7-14.2); RDW Standard Deviation 45.7 fL (35.1-46.3)
[2025-05-21 06:41] LABS: Anion Gap 9.0 mmol/L (3-11); Blood Urea Nitrogen 15.0 mg/dL (8-24); CO2, Blood 25.0 mmol/L (21-32); Calcium, Blood 9.1 mg/dL (8.5-10.1); Chloride, Blood 105.0 mmol/L (98-108); Creatinine, Blood 0.91 mg/dL (0.60-1.20); Glucose, Blood 92.0 mg/dL (70-99); Phosphorus, Blood 3.3 mg/dL (2.5-4.9); Potassium, Blood 4.0 mmol/L (3.5-5.5); Sodium, Blood 135.0 mmol/L (136-145)
[2025-05-21 07:08] VITALS: BP 158/97
[2025-05-21] MEDS ORDERED: CefTRIAXone Sodium 2,000 MG in NS 100 ML IV ONE (10:45)
[2025-05-21] MEDS ORDERED: Acetaminophen325 M1 PO (10:51)
[2025-05-21] MEDS ORDERED: AMOCLA875 PO (11:06)
[2025-05-21] MEDS ORDERED: OXAYDO5 M1 PO (11:08)
[2025-05-21] MEDS ORDERED: VISBIOME 112.51 EACH PO (11:09)
[2025-05-21 14:32] VITALS: BP 136/94
--- NOTE | 2025-05-21 14:40 | NUR ---
DR WHEATLEY PLANS FOR PT TO DC TOMORROW. NOTIFIED DR BARR.
--- NOTE | 2025-05-21 16:26 | NUR ---
SUMMARY NO ACUTE CHANGES T/O SHIFT. PT AMBULATES INDEPENDENTLY FREQUENTLY. PAIN MANAGED PER PO PAIN MEDS PRN. TOLERATING FULL LIQUID DIET. GER PUTTING OUT SS FLUID. SPOUSE BEDSIDE. PT PLEASANT AND COOPERATIVE.
[2025-05-21 19:52] VITALS: BP 130/90
--- NOTE | 2025-05-22 00:30 | NUR ---
UPDATE ASSESSED GER DRAIN SITE, MODERATE DRAINAGE ON DRESSING NOTED. DRESSING CHANGED. PT TOLERATED WELL.
[2025-05-22 04:09] VITALS: BP 128/82
--- NOTE | 2025-05-22 06:42 | NUR ---
SHIFT SUMMARY POD 6 INTRAABDOMINAL ABSCESS. NO ACUTE CHANGES OVERNIGHT. A&O X4. PT DENIES NAUSEA. PAIN MANAGED WELL PER EMAR. GER DRAIN PATENT AND DRAINING MINIMAL SS FLUID. GER DRESSING CHANGED THIS SHIFT. LAP SITES X4 C/D/I SLOPE RUNNER. PT INDEPENDENT IN ROOM. PT RESTING IN BED, RESPIRATIONS EVEN AND UNLABORED. CALL LIGHT WITHIN REACH.
[2025-05-22 07:59] VITALS: BP 128/92
[2025-05-22] MEDS ORDERED: FERSU300 PO (11:06)
--- NOTE | 2025-05-22 14:18 | NUR ---
PATIENT DISCHARGED AFTER DR PULLED GER DRAIN . SITE HAD BANDAID OVER IT NO DRAINAGE NOTED. PATIENT LEFT VIA WC WITH STAFF AND . PATIENT VOICED UNDERSTANDING OF DISCHARGE INSTRUCTIONS.
== END 2025-05-22 13:31 | disposition home or self-care (01) | DRG 856 ==
LOC: SURS 03:15
PROVIDERS: Student in an Organized Health Care Education/Training Program; Surgery; ADMIT Internal Medicine
PROC: 3E03329 Introduction of Other Anti-infective into Peripheral Vein, Percutaneous Approach (ICD-10-PCS; 2025-05-16)
PROC: 3E0336Z Introduction of Nutritional Substance into Peripheral Vein, Percutaneous Approach (ICD-10-PCS; 2025-05-16)
PROC: 3E02340 Introduction of Influenza Vaccine into Muscle, Percutaneous Approach (ICD-10-PCS; 2025-05-16)
PROC: 0W9G40Z Drainage of Peritoneal Cavity with Drainage Device, Percutaneous Endoscopic Approach (ICD-10-PCS; principal; 2025-05-16 15:30)
DX: T81.49XA Infection following a procedure, other surgical site, initial encounter (principal); A41.9 Sepsis, unspecified organism; K65.1 Peritoneal abscess; E46 Unspecified protein-calorie malnutrition; E87.1 Hypo-osmolality and hyponatremia; D64.9 Anemia, unspecified; D75.838 Other thrombocytosis; Z23 Encounter for immunization; I25.2 Old myocardial infarction; Z95.5 Presence of coronary angioplasty implant and graft; Z87.19 Personal history of other diseases of the digestive system; Z88.5 Allergy status to narcotic agent; Z79.899 Other long term (current) drug therapy; Z98.890 Other specified postprocedural states; Z68.28 Body mass index [BMI] 28.0-28.9, adult; Y83.9 Surgical procedure, unspecified as the cause of abnormal reaction of the patient, or of later complication, without mention of misadventure at the time of the procedure
CPT/HCPCS: 36415; 74220; 80048; 80053; 80202; 82607; 82728; 82746; 82947; 83540; 83550; 83605; 83735; 83880; 84100; 84134; 84478; 85025; 87040; 87070; 87075; 87077; 87205; 94762; 96361; 96365; 96366; 96367; 96368; 96375; 96376; A9270; G0378; G0379; J0696; J1100; J1171; J1650; J1885; J2405; J2543; J2704; J3010; J3373; J3411; J7030; J7040; J7050; J7060; J7120